=== PATIENT | female | born 1950 | race Hispanic/Latino ===

== ENCOUNTER 2024-08-06 20:50 | Emergency (ER) | payer MEDICARE, OTHER ==
[~2024-08-06] VITALS: Ht 165.1 cm; Wt 54.4 kg
[2024-08-06 21:44] VITALS: TEMP 97.8
[2024-08-06 22:34] LABS: INFLUENZA A AG NEGATIVE (NEGATIVE); INFLUENZA B AG NEGATIVE (NEGATIVE)
[2024-08-06 22:35] LABS: CORONAVIRUS COVID-19 AG NEGATIVE (NEGATIVE)
[2024-08-06] MEDS ORDERED: DOXYCYCLINE HY100 MG PO (23:55)
[2024-08-06] MEDS: DOXYCYCLINE HYCLATE TABLET 100 MG TAB PO ONE (23:55)
[2024-08-06] MEDS ORDERED: ONDANSETRON ODT4 MG SL (23:55)
[2024-08-07] VITALS: PULSE 73; RESP 19
[2024-08-07 00:25] VITALS: BP 139/66; PULSE 73; RESP 19; O2SAT 100
== END 2024-08-07 00:27 | disposition home or self-care (01) ==
LOC: ER 23:24
DX: R05.9 Cough, unspecified (principal); J18.9 Pneumonia, unspecified organism; I10 Essential (primary) hypertension; E11.9 Type 2 diabetes mellitus without complications; M06.9 Rheumatoid arthritis, unspecified; Z11.52 Encounter for screening for COVID-19; Z87.09 Personal history of other diseases of the respiratory system
CPT/HCPCS: 71045; 99284

== ENCOUNTER 2025-01-24 14:29 | Emergency (ER) | payer MEDICARE, OTHER ==
[~2025-01-24] VITALS: Ht 162.6 cm; Wt 52.2 kg
[~2025-01-24 14:29] MED LIST: DOXYCYCLINE HY100 MG PO; ONDANSETRON ODT4 MG SL
[2025-01-24 16:40] VITALS: TEMP 97.9
[2025-01-24] MEDS ORDERED: NAPROXEN375 MG PO (17:53)
[2025-01-24 18:07] VITALS: PULSE 66; RESP 14
[2025-01-24 20:00] VITALS: TEMP 98.1
[2025-01-24 21:03] VITALS: BP 115/102; PULSE 73; RESP 18; O2SAT 100
== END 2025-01-24 21:06 | disposition other institution (70) ==
LOC: ER 17:24
DX: S22.080A Wedge compression fracture of T11-T12 vertebra, initial encounter for closed fracture (principal); M54.6 Pain in thoracic spine; S72.092A Other fracture of head and neck of left femur, initial encounter for closed fracture; W01.0XXA Fall on same level from slipping, tripping and stumbling without subsequent striking against object, initial encounter; Y93.01 Activity, walking, marching and hiking; Y92.22 Religious institution as the place of occurrence of the external cause; I10 Essential (primary) hypertension; E11.9 Type 2 diabetes mellitus without complications; M06.9 Rheumatoid arthritis, unspecified; D86.9 Sarcoidosis, unspecified
CPT/HCPCS: 70450; 72125; 72128; 72131; 72192; 99284